=== PATIENT | male | born 1945 | race Caucasian/White ===

== ENCOUNTER 2018-02-07 18:09 | Inpatient (IN) | payer OTHER ==
[~2018-02-07] VITALS: Ht 167.6 cm; Wt 69.1 kg
[~2018-02-07 18:09] MED LIST: AMLO10 PO; ATEN100 PO; ATOR40TA PO; Aspirin325 MG PO; CARV6.25 PO; CLON.1 PO; CLOP75 PO; Glucophage1000 MG PO; Prilosec Otc20 MG PO; ZESTORETIC 20-121 EA PO
[2018-02-07 19:27] LABS: BASOPHILS ABSOLUTE AUTO 0.05 K/mm3 (0.00-0.23); BASOPHILS PERCENT AUTO 1 % (0-2); EOSINOPHILS ABSOLUTE AUTO 0.22 K/mm3 (0.00-0.68); EOSINOPHILS PERCENT AUTO 3 % (0-6); Hematocrit 37.7 % (37.0-53.0); Hemoglobin 12.7 g/dL (13.5-17.5); IMMATURE GRAN ABSOLUTE AUTO 0.03 K/mm3 (0.00-0.10); IMMATURE GRAN PERCENT AUTO 0 % (0-1); LYMPHOCYTES PERCENT AUTO 12 % (21-46); MONOCYTES ABSOLUTE AUTO 0.63 K/mm3 (0.16-1.47); MONOCYTES PERCENT AUTO 7 % (4-13); Mean Corpuscular HGB 31.1 pg (26.0-34.0); Mean Corpuscular HGB Conc 33.7 g/dL (31.5-36.5); Mean Corpuscular Volume 92 fL (80-100); Mean Platelet Volume 9.8 fL (9.1-12.4); NEUTROPHILS ABSOLUTE AUTO 6.88 K/mm3 (1.96-9.15); NEUTROPHILS PERCENT AUTO 77 % (41-73); Platelet Count 301 K/mm3 (150-400); RDW Coefficient Variation 13.1 % (11.7-14.2); RDW Standard Deviation 44.5 fL (35.1-46.3); Red Blood Cell Count 4.09 M/mm3 (4.30-5.90); White Blood Cell Count 8.91 K/mm3 (4.00-11.30)
[2018-02-07 19:43] LABS: Alanine Aminotransfer (ALT/SGP 27 U/L (12-78); Albumin, Blood 3.3 g/dL (3.4-5.0); Albumin/Globulin Ratio 0.9 (0.8-1.8); Alk Phos 48 U/L (50-136); Anion Gap 7 mmol/L (6-16); Aspartate Aminotrans (AST/SGOT 23 U/L (12-37); Bilirubin, Total 0.3 mg/dL (0.1-1.0); Blood Urea Nitrogen 16 mg/dL (8-24); Bun/Creatinine Ratio 10.6 (12.0-20.0); CO2, Blood 26 mmol/L (21-32); Calcium, Blood 8.5 mg/dL (8.5-10.1); Chloride, Blood 100 mmol/L (98-108); Creatinine, Blood 1.51 mg/dL (0.60-1.20); Globulin, Blood 3.6 g/dL (2.2-4.0); Glomerular Filtration Rate 49 (60-); Glucose, Blood 132 mg/dL (70-99); Potassium, Blood 4.7 mmol/L (3.5-5.5); Sodium, Blood 133 mmol/L (136-145); Total Protein, Blood 6.9 g/dL (6.4-8.2); Troponin I <0.015 ng/mL (0.000-0.040)
[2018-02-08 02:45] LABS: Hematocrit 33.8 % (37.0-53.0); Hemoglobin 11.5 g/dL (13.5-17.5); Mean Corpuscular HGB 31.3 pg (26.0-34.0); Mean Corpuscular Volume 92 fL (80-100); Mean Platelet Volume 9.5 fL (9.1-12.4); Platelet Count 250 K/mm3 (150-400); RDW Coefficient Variation 13.2 % (11.7-14.2); RDW Standard Deviation 44.4 fL (35.1-46.3); Red Blood Cell Count 3.68 M/mm3 (4.30-5.90); White Blood Cell Count 8.22 K/mm3 (4.00-11.30)
[2018-02-08 03:09] LABS: Alanine Aminotransfer (ALT/SGP 24 U/L (12-78); Albumin, Blood 2.9 g/dL (3.4-5.0); Albumin/Globulin Ratio 0.9 (0.8-1.8); Alk Phos 47 U/L (50-136); Anion Gap 10 mmol/L (6-16); Aspartate Aminotrans (AST/SGOT 17 U/L (12-37); Bilirubin, Total 0.3 mg/dL (0.1-1.0); Blood Urea Nitrogen 22 mg/dL (8-24); Bun/Creatinine Ratio 13.1 (12.0-20.0); CO2, Blood 25 mmol/L (21-32); Chloride, Blood 100 mmol/L (98-108); Creatinine, Blood 1.68 mg/dL (0.60-1.20); Globulin, Blood 3.4 g/dL (2.2-4.0); Glomerular Filtration Rate 43 (60-); Glucose, Blood 103 mg/dL (70-99); Potassium, Blood 4.5 mmol/L (3.5-5.5); Sodium, Blood 135 mmol/L (136-145); Total Protein, Blood 6.3 g/dL (6.4-8.2); Troponin I <0.015 ng/mL (0.000-0.040)
[2018-02-08 03:17] LABS: CPK Creatine Kinase 67 U/L (39-308)
[2018-02-08 04:40] LABS: Source, Urine Clean Catch
[2018-02-08 04:43] LABS: Bilirubin, Urine Neg (Neg); Blood, Urine Neg (Neg); Glucose Qualitative, Urine Neg (Neg); Ketones, Urine Neg (Neg); Leukocyte Esterase, Urine 1+ (Neg); Nitrite, Urine Neg (Neg); Protein, Urine 4+ (Neg); Specific Gravity, Urine 1.015 (1.003-1.022); Urobilinogen, Urine NORM (Normal)
[2018-02-08 04:51] LABS: Color, Urine Yellow (P-Yellow)
[2018-02-08 04:52] LABS: Appearance, Urine Clear (Clear)
[2018-02-08 04:53] LABS: Bacteria Not Seen /hpf; Granular Casts 0-2 /lpf (0); Hyaline Casts 25-50 /lpf (0-2); Red Blood Cells, Urine Not Seen /hpf (0-2); Squamous Epithelial Cells Rare /hpf (Few); White Blood Cells, Urine 0-2 /hpf (0-5)
[2018-02-08 05:02] LABS: U Amphetamine Screen Not Detected; U Barbituate Screen Not Detected; U Benzodiazapine Screen Not Detected; U Buprenorphine Screen Not Detected; U Cannabinoids Screen DETECTED; U Cocaine Screen Not Detected; U Methadone Screen Not Detected; U Methamphetamine Screen Not Detected; U Opiates Screen Not Detected; U Oxycodone Screen DETECTED; U Phencyclidine Screen Not Detected
[2018-02-08 05:03] LABS: U Propoxyphene Screen Not Detected
[2018-02-08 11:45] LABS: CPK Creatine Kinase 83 U/L (39-308); Troponin I <0.015 ng/mL (0.000-0.040)
[2018-02-09 05:14] LABS: BASOPHILS ABSOLUTE AUTO 0.05 K/mm3 (0.00-0.23); BASOPHILS PERCENT AUTO 1 % (0-2); EOSINOPHILS ABSOLUTE AUTO 0.24 K/mm3 (0.00-0.68); EOSINOPHILS PERCENT AUTO 4 % (0-6); Hematocrit 36.7 % (37.0-53.0); Hemoglobin 12.4 g/dL (13.5-17.5); IMMATURE GRAN ABSOLUTE AUTO 0.02 K/mm3 (0.00-0.10); IMMATURE GRAN PERCENT AUTO 0 % (0-1); LYMPHOCYTES ABSOLUTE AUTO 1.39 K/mm3 (0.84-5.20); LYMPHOCYTES PERCENT AUTO 20 % (21-46); MONOCYTES PERCENT AUTO 12 % (4-13); Mean Corpuscular HGB Conc 33.8 g/dL (31.5-36.5); Mean Platelet Volume 9.3 fL (9.1-12.4); NEUTROPHILS ABSOLUTE AUTO 4.33 K/mm3 (1.96-9.15); NEUTROPHILS PERCENT AUTO 63 % (41-73); Platelet Count 265 K/mm3 (150-400); RDW Standard Deviation 42.8 fL (35.1-46.3); Red Blood Cell Count 4.14 M/mm3 (4.30-5.90); White Blood Cell Count 6.83 K/mm3 (4.00-11.30)
[2018-02-09 05:19] LABS: Mean Corpuscular Volume 89 fL (80-100)
[2018-02-09 05:33] LABS: Albumin, Blood 3.2 g/dL (3.4-5.0); Albumin/Globulin Ratio 0.9 (0.8-1.8); Bilirubin, Total 0.5 mg/dL (0.1-1.0); Bun/Creatinine Ratio 16.8 (12.0-20.0); Calcium, Blood 8.4 mg/dL (8.5-10.1); Creatinine, Blood 1.37 mg/dL (0.60-1.20); Globulin, Blood 3.6 g/dL (2.2-4.0); Magnesium, Blood 2.2 mg/dL (1.6-2.4); Phosphorus, Blood 3.9 mg/dL (2.5-4.9); Potassium, Blood 3.9 mmol/L (3.5-5.5); Total Protein, Blood 6.8 g/dL (6.4-8.2)
[2018-02-10] MEDS ORDERED: TRAM50 PO (14:59)
== END 2018-02-10 15:40 | disposition home or self-care (01) | DRG 312 ==
LOC: ER 18:09 → MEDS 18:10 → ENPENDDIS 02-10 13:41 → MEDS 02-10 15:40
PROVIDERS: Emergency Medicine; Hospitalist; Internal Medicine
DX: R55 Syncope and collapse (principal); N17.9 Acute kidney failure, unspecified; I25.2 Old myocardial infarction; Z95.5 Presence of coronary angioplasty implant and graft; Z87.891 Personal history of nicotine dependence; R00.1 Bradycardia, unspecified; I25.10 Atherosclerotic heart disease of native coronary artery without angina pectoris; E86.0 Dehydration; N18.2 Chronic kidney disease, stage 2 (mild); R94.31 Abnormal electrocardiogram [ECG] [EKG]; F12.90 Cannabis use, unspecified, uncomplicated; F11.90 Opioid use, unspecified, uncomplicated; I35.0 Nonrheumatic aortic (valve) stenosis; I12.9 Hypertensive chronic kidney disease with stage 1 through stage 4 chronic kidney disease, or unspecified chronic kidney disease; E11.22 Type 2 diabetes mellitus with diabetic chronic kidney disease; Z79.84 Long term (current) use of oral hypoglycemic drugs
CPT/HCPCS: 36415; 71046; 76770; 78452; 80053; 81001; 82436; 82550; 82947; 83735; 83880; 84100; 84300; 84484; 85025; 85027; 93005; 93010; 93017; 93306; 96361; 96372; 96374; 96376; 99285-25; A9500; G0378; J0360; J0706; J1650; J2785; J7030

== ENCOUNTER → 2018-02-20 | Outpatient (CLI) | payer OTHER ==
[~2018-02-20] MED LIST changes: +TRAM50 PO
[2018-02-22 09:29] LABS: Stool Occult Bld Immuno 1 Negative (NEGATIVE)
== END | disposition home or self-care (01) ==
LOC: LAB EV 16:00
PROVIDERS: Internal Medicine
DX: D50.9 Iron deficiency anemia, unspecified (principal)
CPT/HCPCS: 82274

== ENCOUNTER 2019-04-24 21:07 | Inpatient (IN) | payer OTHER ==
[~2019-04-24] VITALS: Ht 167.6 cm; Wt 70.3 kg
[2019-04-24 21:31] LABS: BASOPHILS ABSOLUTE AUTO 0.08 K/mm3 (0.00-0.23); BASOPHILS PERCENT AUTO 1 % (0-2); EOSINOPHILS PERCENT AUTO 4 % (0-6); Hematocrit 46.3 % (37.0-53.0); IMMATURE GRAN ABSOLUTE AUTO 0.04 K/mm3 (0.00-0.10); IMMATURE GRAN PERCENT AUTO 1 % (0-1); LYMPHOCYTES ABSOLUTE AUTO 1.99 K/mm3 (0.84-5.20); LYMPHOCYTES PERCENT AUTO 23 % (21-46); MONOCYTES ABSOLUTE AUTO 0.73 K/mm3 (0.16-1.47); MONOCYTES PERCENT AUTO 8 % (4-13); Mean Corpuscular HGB 30.5 pg (26.0-34.0); Mean Corpuscular HGB Conc 32.4 g/dL (31.5-36.5); Mean Corpuscular Volume 94 fL (80-100); Mean Platelet Volume 10.2 fL (9.1-12.4); NEUTROPHILS ABSOLUTE AUTO 5.51 K/mm3 (1.96-9.15); NEUTROPHILS PERCENT AUTO 64 % (41-73); Platelet Count 378 K/mm3 (150-400); RDW Standard Deviation 48.8 fL (35.1-46.3); Red Blood Cell Count 4.91 M/mm3 (4.30-5.90); White Blood Cell Count 8.65 K/mm3 (4.00-11.30)
[2019-04-24 21:36] LABS: PCO2 Arterial 36.6 mmHg (35-45); PO2 Arterial 64.9 mmHg (80-100); pH Blood Arterial 7.39 (7.35-7.45)
[2019-04-24 21:46] LABS: Alanine Aminotransfer (ALT/SGP 23 U/L (12-78); Albumin, Blood 3.4 g/dL (3.4-5.0); Albumin/Globulin Ratio 0.8 (0.8-1.8); Alk Phos 62 U/L (50-136); Anion Gap 9 mmol/L (6-16); Aspartate Aminotrans (AST/SGOT 19 U/L (12-37); Bilirubin, Total 0.2 mg/dL (0.1-1.0); Blood Urea Nitrogen 18 mg/dL (8-24); Bun/Creatinine Ratio 11.3 (12.0-20.0); CO2, Blood 25 mmol/L (21-32); Calcium, Blood 8.3 mg/dL (8.5-10.1); Chloride, Blood 95 mmol/L (98-108); Creatinine, Blood 1.59 mg/dL (0.60-1.20); Globulin, Blood 4.3 g/dL (2.2-4.0); Glomerular Filtration Rate 46 (60-); Glucose, Blood 207 mg/dL (70-99); Potassium, Blood 4.3 mmol/L (3.5-5.5); Sodium, Blood 129 mmol/L (136-145); Total Protein, Blood 7.7 g/dL (6.4-8.2); Troponin I <0.015 ng/mL (0.000-0.040)
[2019-04-25 05:10] LABS: Hematocrit 38.5 % (37.0-53.0); Hemoglobin 13.1 g/dL (13.5-17.5); Mean Corpuscular HGB 30.9 pg (26.0-34.0); Mean Platelet Volume 10.2 fL (9.1-12.4); Platelet Count 304 K/mm3 (150-400); RDW Coefficient Variation 13.7 % (11.7-14.2); RDW Standard Deviation 45.9 fL (35.1-46.3); Red Blood Cell Count 4.24 M/mm3 (4.30-5.90); White Blood Cell Count 8.55 K/mm3 (4.00-11.30)
[2019-04-25 05:12] LABS: Mean Corpuscular Volume 91 fL (80-100)
[2019-04-25 05:31] LABS: Calcium, Blood 8.7 mg/dL (8.5-10.1); Creatinine, Blood 1.54 mg/dL (0.60-1.20); Potassium, Blood 4.2 mmol/L (3.5-5.5)
--- NOTE | 2019-04-25 06:17 | NUR ---
END OF SHIFT SUMMARY PT TO UNIT FROM ED, ON 4LNC, SPO2 >94%, PT HAS SINCE BEEN TITRATED TO RA, SPO2 >95%. HAS NOT REQUIRED BIPAP. PT AXO, VERY PLEASANT. SR TO ST FOR HR, PT WAS NORMOTENSIVE, AND THEN HAD RANDOM HTN OF 200'S SBP, MEDS PER EMAR, HAS DECREASED TO 150'S. TROPONIN APPEARS TO HAVE INCREASED FROM NEGATIVE TO 0.059, HAVE CALLED MULTIPLE TIMES TO PROVIDER, HAS NOT RETURNED CALL YET. PT HAS SMALL TEAR/ULCER IN [place] ON ADMIT, TOOL AND EQUIPMENT RENTAL CLERK. OTHERWISE PT HAS SLEPT T/O SHIFT POST ADMIT. CALL LIGHT WITHIN REACH. WILL CONTINUIE TO MONITOPR.
--- NOTE | 2019-04-25 09:54 | NUR ---
ECHOCARDIOGRAM COMPLETED
--- NOTE | 2019-04-25 10:03 | NUR ---
This morning the pt is alert, oriented and pleasantly conversant. States that his breathing is better than it was last night, but still not back to normal. NO cough, no tachypnea, no shortness of breath noted at rest. Pt did not require the bipap since admission to PCU; received 40 mg lasix from EMS, but none since admission. He has been on room air without any supplemental oxgyen since midnight, per noc shift RN report this morning. Noted Echocardiogram ordered for this morning. Spoke with Dr. Felix this morning and he has received the consultation request. New order that pt could eat breakfast today. Blood pressure noted elevated this morning, plan to reassess one hour after administration of medications.
--- NOTE | 2019-04-25 13:28 | NUR ---
Spiritual care visit conducted. Patient is sitting up in bed and alert. Patient is talkative and easily shares about his 30 plus years at [employer], his medical condition and his 50 plus years of marriage. When asked what his inspiration, drive and hope is, patient states, "My and 4 kids are all that and more." Patient gets teary eyed as he talks about the love and meaning his family brings him. I listen empathically, normalize patient experience and provide companionship. Patient responds well and shows signs of an elevated mood.
--- NOTE | 2019-04-25 16:13 | NUR ---
The pt states that his breathing is feeling so much better than he was last night. His son was here. The pt is being given IV antibiotics for his pneumonia. NO c/o shortness of breath, denies dyspnea, no supplemental oxygen requirement at this time. Vital signs are stable and spo2 is 97% on room air.
[2019-04-26 03:41] LABS: BASOPHILS ABSOLUTE AUTO 0.02 K/mm3 (0.00-0.23); BASOPHILS PERCENT AUTO 0 % (0-2); EOSINOPHILS ABSOLUTE AUTO 0.08 K/mm3 (0.00-0.68); EOSINOPHILS PERCENT AUTO 1 % (0-6); Hematocrit 32.5 % (37.0-53.0); Hemoglobin 11.4 g/dL (13.5-17.5); IMMATURE GRAN ABSOLUTE AUTO 0.04 K/mm3 (0.00-0.10); IMMATURE GRAN PERCENT AUTO 0 % (0-1); LYMPHOCYTES ABSOLUTE AUTO 1.66 K/mm3 (0.84-5.20); LYMPHOCYTES PERCENT AUTO 15 % (21-46); MONOCYTES ABSOLUTE AUTO 1.01 K/mm3 (0.16-1.47); MONOCYTES PERCENT AUTO 9 % (4-13); Mean Corpuscular HGB 31.7 pg (26.0-34.0); Mean Corpuscular HGB Conc 35.1 g/dL (31.5-36.5); Mean Corpuscular Volume 90 fL (80-100); NEUTROPHILS ABSOLUTE AUTO 8.62 K/mm3 (1.96-9.15); NEUTROPHILS PERCENT AUTO 76 % (41-73); Platelet Count 285 K/mm3 (150-400); RDW Coefficient Variation 13.8 % (11.7-14.2); RDW Standard Deviation 45.9 fL (35.1-46.3); White Blood Cell Count 11.43 K/mm3 (4.00-11.30)
[2019-04-26 04:06] LABS: Anion Gap 8 mmol/L (6-16); Blood Urea Nitrogen 27 mg/dL (8-24); Bun/Creatinine Ratio 18.1 (12.0-20.0); CO2, Blood 26 mmol/L (21-32); Calcium, Blood 8.3 mg/dL (8.5-10.1); Chloride, Blood 95 mmol/L (98-108); Creatinine, Blood 1.49 mg/dL (0.60-1.20); Glomerular Filtration Rate 49 (60-); Glucose, Blood 105 mg/dL (70-99); Phosphorus, Blood 3.1 mg/dL (2.5-4.9); Potassium, Blood 3.9 mmol/L (3.5-5.5); Sodium, Blood 129 mmol/L (136-145); Troponin I 0.036 ng/mL (0.000-0.040)
--- NOTE | 2019-04-26 06:26 | NUR ---
SHIFT SUMMARY PT HAS REMAINED AOX4 THROUGHOUT SHIFT. VSS. PLEASANT AND COOPERATIVE WITH CARE. PT CONTINUES TO AMBULATE INDEPENDENTLY TO RESTROOM WITHOUT DIFFICULTY. O2 SATS REMAINED >90% ON RA THROUGHOUT THE NIGHT, SLIGHT DYSPNEA ON EXERTION - MUCH IMPROVED. CONTINUES TO HAVE OCCASIONAL DRY COUGH. NO OTHER CHANGES NOTED FROM INITIAL ASSESSMENT. WILL CONTINUE TO MONITOR AND REPORT TO ONCOMING SHIFT RN. BED IN LOW POSITION, CALL LIGHT IN REACH.
--- NOTE | 2019-04-26 07:37 | NUR ---
ASSUMED CARE: PT RESTING IN BED AT THIS TIME. NO ACUTE NEEDS OR CONCERNS AT THIS TIME.
[2019-04-26] MEDS ORDERED: FURO20 PO (13:07)
[2019-04-26] MEDS ORDERED: LISI20 PO (13:08)
[2019-04-26] MEDS ORDERED: POTCHL20ER PO (13:09)
--- NOTE | 2019-04-26 15:03 | NUR ---
PT'S IV REMOVED WNL PER CHELA COOPER. DISCUSSED MEDICATIONS AND FOLLOW UP APPOINTMENTS WITH PT AND FAMILY. DENIED FURTHER QUESTIONS. PT ESCORTED OUT VIA WHEEL CHAIR BY SENIOR MEDICAL TECHNOLOGIST STUDENT.
== END 2019-04-26 14:58 | disposition home or self-care (01) | DRG 280 ==
LOC: ER 21:07 → PCU 23:23
PROVIDERS: Emergency Medicine; Family Medicine; Nurse Practitioner Acute Care; ADMIT Hospitalist
PROC: 5A09357 Assistance with Respiratory Ventilation, Less than 24 Consecutive Hours, Continuous Positive Airway Pressure (ICD-10-PCS; principal; 2019-04-24)
DX: I13.0 Hypertensive heart and chronic kidney disease with heart failure and stage 1 through stage 4 chronic kidney disease, or unspecified chronic kidney disease (principal); J96.01 Acute respiratory failure with hypoxia; I21.A1 Myocardial infarction type 2; J18.9 Pneumonia, unspecified organism; I50.33 Acute on chronic diastolic (congestive) heart failure; I16.1 Hypertensive emergency; E87.1 Hypo-osmolality and hyponatremia; I25.10 Atherosclerotic heart disease of native coronary artery without angina pectoris; E11.22 Type 2 diabetes mellitus with diabetic chronic kidney disease; I25.2 Old myocardial infarction; Z87.891 Personal history of nicotine dependence; N18.3 Chronic kidney disease, stage 3 (moderate); K21.9 Gastro-esophageal reflux disease without esophagitis; I35.0 Nonrheumatic aortic (valve) stenosis; Z95.5 Presence of coronary angioplasty implant and graft; Z79.82 Long term (current) use of aspirin; Z79.84 Long term (current) use of oral hypoglycemic drugs
CPT/HCPCS: 36415; 36600; 71045; 71260; 80048; 80053; 80069; 82803; 82947; 83880; 84484; 85025; 85027; 85379; 90686; 93005; 93010; 93306; 94644; 94660; 94760; 94762; 96374; 99285-25; J0360; J0696; J1100; J1644; J7050; Q9967

== ENCOUNTER 2020-09-08 23:07 | Inpatient (IN) | payer OTHER, MEDICARE ==
[~2020-09-08] VITALS: Ht 152.4 cm; Wt 67.8 kg
[~2020-09-08 23:07] MED LIST changes: +FURO20 PO; +LISI20 PO; +POTCHL20ER PO
[2020-09-08 23:29] LABS: BASOPHILS ABSOLUTE AUTO 0.05 K/mm3 (0.00-0.23); BASOPHILS PERCENT AUTO 1 % (0-2); EOSINOPHILS ABSOLUTE AUTO 0.31 K/mm3 (0.00-0.68); EOSINOPHILS PERCENT AUTO 3 % (0-6); Hematocrit 37.6 % (37.0-53.0); Hemoglobin 12.8 g/dL (13.5-17.5); IMMATURE GRAN ABSOLUTE AUTO 0.05 K/mm3 (0.00-0.10); IMMATURE GRAN PERCENT AUTO 1 % (0-1); LYMPHOCYTES ABSOLUTE AUTO 1.37 K/mm3 (0.84-5.20); LYMPHOCYTES PERCENT AUTO 15 % (21-46); MONOCYTES ABSOLUTE AUTO 0.64 K/mm3 (0.16-1.47); MONOCYTES PERCENT AUTO 7 % (4-13); Mean Corpuscular HGB 31.7 pg (26.0-34.0); Mean Corpuscular Volume 93 fL (80-100); Mean Platelet Volume 9.7 fL (9.1-12.4); NEUTROPHILS ABSOLUTE AUTO 6.93 K/mm3 (1.96-9.15); NEUTROPHILS PERCENT AUTO 74 % (41-73); Platelet Count 344 K/mm3 (150-400); RDW Coefficient Variation 13.8 % (11.7-14.2); RDW Standard Deviation 46.8 fL (35.1-46.3); Red Blood Cell Count 4.04 M/mm3 (4.30-5.90); White Blood Cell Count 9.35 K/mm3 (4.00-11.30)
[2020-09-08 23:55] LABS: Albumin, Blood 2.9 g/dL (3.4-5.0); Albumin/Globulin Ratio 0.8 (0.8-1.8); Bilirubin, Total 0.2 mg/dL (0.1-1.0); Bun/Creatinine Ratio 14.5 (12.0-20.0); Calcium, Blood 7.7 mg/dL (8.5-10.1); Creatinine, Blood 1.93 mg/dL (0.60-1.20); Globulin, Blood 3.8 g/dL (2.2-4.0); Potassium, Blood 4.3 mmol/L (3.5-5.5); Total Protein, Blood 6.7 g/dL (6.4-8.2); Troponin I 0.016 ng/mL (0.000-0.040)
[2020-09-09 02:29] LABS: Base Excess Venous -3.5 mmol/L; Bicarbonate Venous 21.5 mmol/L (24.0-30.0); PCO2 Venous 40.4 mmHg (38-42); pH Blood Venous 7.35 (7.34-7.37)
--- NOTE | 2020-09-09 05:54 | NUR ---
SHIFT SUMMARY ASSUMED CARE OF PT AT 0325. PT AXO. IN SR. PT TITRATED FROM 3LNC TO RA, SPO2 >94%. LUNGS CLEAR T/O. CONTINENT. HTN, MEDS PER EMAR, APRESOLINE SUCCESFUL AT LOWERING BP TO NORMOTENSIVE RANGE. PT RECEIVING IL NS CURRENTLY X1 BAG. ADMISSION COMPLETED, EXCEPT MED REC. PT UNAWARE OF MED REGIMEN, WCTM.
--- NOTE | 2020-09-09 08:06 | NUR ---
PT SITTING UP IN BED EATING BREAKFAST. ABLE TO MOVE SELF IN BED AND GET SELF TO SIDE OF BED TO USE URINAL. C/O HERRERA, GAVE TYLENOL. HYPERTENSIVE, WILL GIVE HYDRALAZINE WHEN DUE. ON RA WITH SPO2 GREATER THAN 90%, CONTINUOUS OXIMETERY. CALL LIGHT IN REACH AND PT USES APPROPRIATELY. NO REQUESTS.
[2020-09-09] MEDS ORDERED: METO50ER PO (11:32)
[2020-09-09] MEDS ORDERED: HYDROCHLOROTH12.5 MG PO (11:35)
[2020-09-09] MEDS ORDERED: TAMS.4ER PO (11:37)
[2020-09-09] MEDS ORDERED: TERB250 PO (11:37)
--- NOTE | 2020-09-09 12:31 | NUR ---
PT STILL C/O HERRERA. CALLED LATESHA FINK FROM [facility] WITH UPDATED MED LIST. NEW ORDERS FOR BP MEDS. PT NAUSEATED. GAVE ZOFRAN. WILL GIVE ORDERED BP MEDS WHEN PT IS LESS NAUSEATED.
--- NOTE | 2020-09-09 14:26 | NUR ---
ADMIT: 09/08/20 DISCHARGE: DX: Acute Resp. Failure CC: [email or web address]: 04/24/19 DISCHARGE:04/26/19 DX: ACUTE HYPOXEMIC RESPIRATORY FAILURE ADMIT: 02/07/18 DISCHARGE: 02/10/18TOC CALL:RESIDENCE: HomeCAREGIVER:Britany Davis, Child, Alba Francisco Javier, Spouse / Partner, AH: HTN, CKD-stage 3, CAD, GERD, see listDME: noneCCM: [facility] NoneSUMMARY: Admit: /- per chart review with Dr. Quinonez, pt's health has improved and she will be changing his status to med/surg. She feels that he could potentially discharge either or Monday. He needs to be diurese and pt reports that he is feeling significantly better and is not so short of breath. -ena
--- NOTE | 2020-09-09 16:45 | NUR ---
PT'S HERRERA IMPROVED AFTER BP IMPROVED WELL NAUSEA. NO SIGN OF DISTRESS. BEING TRANSFERED TO SURGICAL ROOM 209. REPORT GIVEN TO RN. TAKEN VIA W/C.
--- NOTE | 2020-09-09 17:10 | NUR ---
RECVD REPORT FROM POLICE MAGISTRATE, PT TRANSFERRED TO ROOM 209 IN WHEELCHAIR, A/O X 4, PLEASANT/COOPERATIVE, TRANSFERS HIMSELF TO BED, VSS, PROVIDED WITH ORIENTATION TO ROOM/PHONE/CALL LIGHT, PROVIDED WITH PO FLUIDS.
--- NOTE | 2020-09-10 03:21 | NUR ---
Pt gives permission to particpate in care
--- NOTE | 2020-09-10 04:35 | NUR ---
SHIFT SUMMARY PT TRANSFER FROM ICU YESTARDAY. AAOX4/MEKORYUK. PT DENIES DISCOMFORT/NAUSEA T/O SHIFT. LUNG SOUNDS CLEAR, SLIGHTLY DIMINISHED IN BASES. DENIES SOB T/O SHIFT. ON RA, RESPIRATIONS EVEN/UNLABORED. UP TO RESTROOM SBA. GOOD FLUID INTAKE + URINE OUTPUT. NO ACUTE CHANGES OVER NIGHT. PT CURRENTLY RESTING IN BED WITH CALL LIGHT IN REACH.
[2020-09-10 04:36] LABS: BASOPHILS ABSOLUTE AUTO 0.03 K/mm3 (0.00-0.23); BASOPHILS PERCENT AUTO 0 % (0-2); EOSINOPHILS ABSOLUTE AUTO 0.17 K/mm3 (0.00-0.68); EOSINOPHILS PERCENT AUTO 2 % (0-6); Hematocrit 37.4 % (37.0-53.0); Hemoglobin 12.5 g/dL (13.5-17.5); IMMATURE GRAN ABSOLUTE AUTO 0.01 K/mm3 (0.00-0.10); IMMATURE GRAN PERCENT AUTO 0 % (0-1); LYMPHOCYTES ABSOLUTE AUTO 0.95 K/mm3 (0.84-5.20); LYMPHOCYTES PERCENT AUTO 13 % (21-46); MONOCYTES ABSOLUTE AUTO 0.63 K/mm3 (0.16-1.47); MONOCYTES PERCENT AUTO 9 % (4-13); Mean Corpuscular HGB 30.9 pg (26.0-34.0); Mean Corpuscular HGB Conc 33.4 g/dL (31.5-36.5); Mean Corpuscular Volume 92 fL (80-100); Mean Platelet Volume 9.7 fL (9.1-12.4); NEUTROPHILS ABSOLUTE AUTO 5.49 K/mm3 (1.96-9.15); NEUTROPHILS PERCENT AUTO 76 % (41-73); Platelet Count 333 K/mm3 (150-400); RDW Coefficient Variation 13.9 % (11.7-14.2); RDW Standard Deviation 47.9 fL (35.1-46.3); Red Blood Cell Count 4.05 M/mm3 (4.30-5.90); White Blood Cell Count 7.28 K/mm3 (4.00-11.30)
[2020-09-10 04:55] LABS: Bun/Creatinine Ratio 14.8 (12.0-20.0); Calcium, Blood 8.6 mg/dL (8.5-10.1); Creatinine, Blood 1.89 mg/dL (0.60-1.20); Potassium, Blood 4.3 mmol/L (3.5-5.5)
--- NOTE | 2020-09-10 13:56 | NUR ---
09/10/20- per chart review with Dr. Quinonez, pt is doing well and will be able to d/c tomorrow. She stated that pt has pneumonia but he is doing better. She will order PT/OT services to work with him to see if he needs anything for post hosp. Went and met with pt and he stated that he is doing much better. He is grateful for the care he has received. He talked about how his had a stroke recently and is in [facility] and then he got sick and admitted into the hospital. He stated that one of his 4 kids will be able to take him home from the hospital. They all live close to him and will come over and help him with any needs he may have. He could not identify any needs at this time. Reviewed [facility] letter with pt and he acknowledged understanding of needing to schedule f/u appt. -ena
--- NOTE | 2020-09-10 18:39 | NUR ---
SHIFT SUMMARY NO ACUTE CHANGES THIS SHIFT. PT A/O X4; PLEASANT AND COOPERATIVE WITH CARE. WORKED WITH P/T AND O/T TODAY. UP WITH A 1 PERSON ASSIST. ON ROOM AIR. VSS; WILL POSSIBLY DC TOMORROW. CURRENTLY RESTING COMFORTABLY IN BED WITH CALL LIGHT IN REACH.
--- NOTE | 2020-09-11 00:35 | NUR ---
PT IS AGREEABLE TO STUDENTS PARTICPATION IN CARE
--- NOTE | 2020-09-11 03:58 | NUR ---
SHIFT SUMMARY: PT CALM DOOPERATIVE WITH BRIGHT AFFECT, A&OX4, PT AMBULATES W/O ASSIST UP ADLIB W/BRP, VS WNL, RESPIRATIONS EVEN UNLABORED ON R/A NO SHORTNESS OF BREATH NOTED T/O NIGHT, APPEARS TO BE RESTING WELL NADN.
[2020-09-11 04:37] LABS: BASOPHILS ABSOLUTE AUTO 0.04 K/mm3 (0.00-0.23); BASOPHILS PERCENT AUTO 1 % (0-2); EOSINOPHILS ABSOLUTE AUTO 0.24 K/mm3 (0.00-0.68); EOSINOPHILS PERCENT AUTO 5 % (0-6); Hematocrit 32.6 % (37.0-53.0); Hemoglobin 11.2 g/dL (13.5-17.5); IMMATURE GRAN ABSOLUTE AUTO 0.01 K/mm3 (0.00-0.10); IMMATURE GRAN PERCENT AUTO 0 % (0-1); LYMPHOCYTES ABSOLUTE AUTO 1.02 K/mm3 (0.84-5.20); LYMPHOCYTES PERCENT AUTO 19 % (21-46); MONOCYTES ABSOLUTE AUTO 0.67 K/mm3 (0.16-1.47); MONOCYTES PERCENT AUTO 13 % (4-13); Mean Corpuscular HGB 31.4 pg (26.0-34.0); Mean Corpuscular HGB Conc 34.4 g/dL (31.5-36.5); Mean Corpuscular Volume 91 fL (80-100); Mean Platelet Volume 9.7 fL (9.1-12.4); NEUTROPHILS ABSOLUTE AUTO 3.28 K/mm3 (1.96-9.15); NEUTROPHILS PERCENT AUTO 62 % (41-73); Platelet Count 280 K/mm3 (150-400); RDW Coefficient Variation 13.7 % (11.7-14.2); RDW Standard Deviation 46.3 fL (35.1-46.3); Red Blood Cell Count 3.57 M/mm3 (4.30-5.90); White Blood Cell Count 5.26 K/mm3 (4.00-11.30)
[2020-09-11 04:52] LABS: Bun/Creatinine Ratio 13.8 (12.0-20.0); Calcium, Blood 8.2 mg/dL (8.5-10.1); Creatinine, Blood 1.95 mg/dL (0.60-1.20); Potassium, Blood 4.1 mmol/L (3.5-5.5)
[2020-09-11] MEDS ORDERED: AZIT200SU PO (13:30)
[2020-09-11] MEDS ORDERED: CEFU500T30 PO (13:31)
--- NOTE | 2020-09-11 13:55 | NUR ---
09/11/20- per chart review, Dr. Barrett has seen pt and found he is stable for d/c. He has good home support. Pt does not identify needs at home and his children are able to help him. He will call one of them to come pick him up. Reviewed [facility] and that would receive call for appt next week. -ena
--- NOTE | 2020-09-11 14:25 | NUR ---
DISCHARGE SUMMARY PT A/O X4; PLEASANT AND COOPERATIVE WITH CARE. REPORTS FEELING MUCH BETTER TODAY AND IS READY TO GO HOME. WORKED WITH P/T AND O/T TODAY AND DID WELL. WENT OUT IN THE [place] FOR MEALS AND IS AMBULATING IN HIS ROOM W/O DIFFICULTY OR ANY DYSPNEA. VSS; IV DC'D WNL. EDUCATED ON MEDICATION CHANGES AND DISCHARGE INSTRUCTIONS. EXHIBITS UNDERSTANDING. WENT HOME WITH SON.
--- NOTE | 2020-09-15 15:34 | NUR ---
DISCHARGE MEDS PHONE CALL FROM DAUGHTER, PATIENT DID NOT TAILINGS DAM PUMPER MEDS FROM [facility]. RX PHONED AGAIN AT THIS TIME. ADVISED THAT MEDS NEED TO BE GIVEN PRESCRIBED AND HE NEEDS TO FOLLOW UP WITH PCP AND RETURN TO ED IF NOT DOING WELL.
== END 2020-09-11 16:20 | disposition home or self-care (01) | DRG 193 ==
LOC: ER 23:07 → ICUE 09-09 00:52 → ICUW 09-09 00:52 → ICUE 09-09 02:44 → SURS 09-09 16:48
PROVIDERS: Emergency Medicine; Family Medicine; ADMIT Family Medicine
DX: J18.9 Pneumonia, unspecified organism (principal); J96.21 Acute and chronic respiratory failure with hypoxia; I16.1 Hypertensive emergency; E87.1 Hypo-osmolality and hyponatremia; N17.9 Acute kidney failure, unspecified; I13.0 Hypertensive heart and chronic kidney disease with heart failure and stage 1 through stage 4 chronic kidney disease, or unspecified chronic kidney disease; I25.10 Atherosclerotic heart disease of native coronary artery without angina pectoris; N18.30 Chronic kidney disease, stage 3 unspecified; I50.9 Heart failure, unspecified; E11.22 Type 2 diabetes mellitus with diabetic chronic kidney disease; K21.9 Gastro-esophageal reflux disease without esophagitis; F17.210 Nicotine dependence, cigarettes, uncomplicated; Z95.5 Presence of coronary angioplasty implant and graft; Z79.84 Long term (current) use of oral hypoglycemic drugs; Z79.02 Long term (current) use of antithrombotics/antiplatelets; Z79.82 Long term (current) use of aspirin
CPT/HCPCS: 36415; 71045; 80048; 80053; 82803; 82947; 83605; 84484; 85025; 87040; 93005; 93010; 94640; 94644; 94760; 96365; 97162; 97165; 97530; 99285-25; A9270; J0360; J0456; J0696; J1644; J2405; J7050

== ENCOUNTER → 2021-02-10 | Outpatient (CLI) | payer OTHER ==
[~2021-02-10] MED LIST changes: +AZIT200SU PO; +CEFU500T30 PO; +HYDROCHLOROTH12.5 MG PO; +METO50ER PO; +TAMS.4ER PO; +TERB250 PO
[2021-02-10 15:17] LABS: Albumin, Blood 3.2 g/dL (3.4-5.0); Anion Gap 11 mmol/L (6-16); Blood Urea Nitrogen 26 mg/dL (8-24); Bun/Creatinine Ratio 11.9 (12.0-20.0); CO2, Blood 22 mmol/L (21-32); Calcium, Blood 7.9 mg/dL (8.5-10.1); Chloride, Blood 101 mmol/L (98-108); Creatinine, Blood 2.19 mg/dL (0.60-1.20); Glomerular Filtration Rate 30 (60-); Glucose, Blood 113 mg/dL (70-99); Phosphorus, Blood 4.6 mg/dL (2.5-4.9); Potassium, Blood 5.2 mmol/L (3.5-5.5); Sodium, Blood 134 mmol/L (136-145)
== END | disposition home or self-care (01) ==
LOC: LAB 14:58 → LAB SHORT 14:58
PROVIDERS: Physician Assistant
DX: E11.22 Type 2 diabetes mellitus with diabetic chronic kidney disease (principal); N18.30 Chronic kidney disease, stage 3 unspecified
CPT/HCPCS: 80069; 83036

== ENCOUNTER → 2021-02-18 | Outpatient (CLI) | payer OTHER ==
[2021-02-22 13:46] LABS: Adenovirus F 40/41 Not Detected (NOT DETECT); Astrovirus Not Detected (NOT DETECT); Campylobacter Sp Not Detected (NOT DETECT); Cryptosporidium Not Detected (NOT DETECT); Cyclospora Cayetanensis Not Detected (NOT DETECT); E. Coli O157 Not Detected (NOT DETECT); Entamoeba Histolytica Not Detected (NOT DETECT); Enteroaggregative E. coli-EAEC Not Detected (NOT DETECT); Enteropathogenic E. coli-EPEC Not Detected (NOT DETECT); Enterotoxigenic E. coli-ETEC Not Detected (NOT DETECT); Giardia Lamblia Not Detected (NOT DETECT); Norovirus GI/GII Not Detected (NOT DETECT); Plesiomonas Shigelloides Not Detected (NOT DETECT); Rotavirus A Not Detected (NOT DETECT); Salmonella Sp Not Detected (NOT DETECT); Sapovirus Not Detected (NOT DETECT); Shiga Toxin-prod E. coli-STEC Not Detected (NOT DETECT); Shigella/Enteroin E. coli-EIEC Not Detected (NOT DETECT); Vibrio Cholerae Not Detected (NOT DETECT); Vibrio Sp Not Detected (NOT DETECT); Yersinia Enterocolitica Not Detected (NOT DETECT)
== END | disposition home or self-care (01) ==
LOC: LAB SHORT 09:00 → LAB 09:00
PROVIDERS: Physician Assistant
DX: R19.7 Diarrhea, unspecified (principal)
CPT/HCPCS: 0097U

== ENCOUNTER 2021-04-23 11:22 | Inpatient (IN) | payer OTHER ==
[~2021-04-23] VITALS: Ht 165.1 cm; Wt 65.6 kg
[2021-04-23 12:31] LABS: BASOPHILS ABSOLUTE AUTO 0.05 K/mm3 (0.00-0.23); BASOPHILS PERCENT AUTO 1 % (0-2); EOSINOPHILS ABSOLUTE AUTO 0.24 K/mm3 (0.00-0.68); EOSINOPHILS PERCENT AUTO 3 % (0-6); Hematocrit 38.5 % (37.0-53.0); IMMATURE GRAN ABSOLUTE AUTO 0.02 K/mm3 (0.00-0.10); IMMATURE GRAN PERCENT AUTO 0 % (0-1); LYMPHOCYTES ABSOLUTE AUTO 0.59 K/mm3 (0.84-5.20); LYMPHOCYTES PERCENT AUTO 6 % (21-46); MONOCYTES ABSOLUTE AUTO 0.48 K/mm3 (0.16-1.47); MONOCYTES PERCENT AUTO 5 % (4-13); Mean Corpuscular HGB 31.6 pg (26.0-34.0); Mean Corpuscular HGB Conc 33.8 g/dL (31.5-36.5); Mean Corpuscular Volume 93 fL (80-100); NEUTROPHILS ABSOLUTE AUTO 7.86 K/mm3 (1.96-9.15); NEUTROPHILS PERCENT AUTO 85 % (41-73); Platelet Count 345 K/mm3 (150-400); RDW Coefficient Variation 13.4 % (11.7-14.2); RDW Standard Deviation 46.3 fL (35.1-46.3); Red Blood Cell Count 4.12 M/mm3 (4.30-5.90); White Blood Cell Count 9.24 K/mm3 (4.00-11.30)
[2021-04-23] MEDS ORDERED: METO50ER PO (12:37)
[2021-04-23 12:44] LABS: Alanine Aminotransfer (ALT/SGP 18 U/L (12-78); Albumin/Globulin Ratio 0.7 (0.8-1.8); Alk Phos 52 U/L (50-136); Anion Gap 9 mmol/L (6-16); Aspartate Aminotrans (AST/SGOT 19 U/L (12-37); Bilirubin, Total 0.4 mg/dL (0.1-1.0); Blood Urea Nitrogen 26 mg/dL (8-24); Bun/Creatinine Ratio 11.3 (12.0-20.0); CO2, Blood 20 mmol/L (21-32); Calcium, Blood 8.4 mg/dL (8.5-10.1); Chloride, Blood 103 mmol/L (98-108); Globulin, Blood 4.1 g/dL (2.2-4.0); Glomerular Filtration Rate 28 (60-); Glucose, Blood 146 mg/dL (70-99); Potassium, Blood 4.9 mmol/L (3.5-5.5); Sodium, Blood 132 mmol/L (136-145); Total Protein, Blood 7.1 g/dL (6.4-8.2); Troponin I <0.015 ng/mL (0.000-0.040)
[2021-04-23 14:45] LABS: SARS-Cov-2 (COVID-19) PCR, MMC POSITIVE (NEGATIVE)
[2021-04-23 16:40] LABS: Lactate Dehydrogenase (Ld),Bld 234 U/L (100-240)
[2021-04-23 16:41] LABS: Ferritin, Serum 40 ng/mL (26-388)
--- NOTE | 2021-04-23 18:19 | NUR ---
SUMMARY PT ADMITTED FROM THE ER, PT ALERT AND ORIENTED, ABLE TO STAND AND TRANSFER SELF FROM THE GURNEY TO THE BED, PT ON ROOM AIR, FAINT WHEEZES HEARD, PT REPORTS BREATHING IS BETTER THAN WHEN HE CAME IN, ORIENTED PT TO ROOM AND CALL SYSTEM, BP ELEVATED, MED PER EMAR WITH GOOD RESULTS, WILL CONT TO MONITOR
--- NOTE | 2021-04-23 20:34 | NUR ---
BP 210/113. MD NOTIFIED. WILL PUT IN ORDERS FOR ADDL. BP MED.
[2021-04-24 04:59] LABS: BASOPHILS ABSOLUTE AUTO 0.01 K/mm3 (0.00-0.23); BASOPHILS PERCENT AUTO 0 % (0-2); EOSINOPHILS PERCENT AUTO 0 % (0-6); Hematocrit 34.6 % (37.0-53.0); Hemoglobin 11.8 g/dL (13.5-17.5); IMMATURE GRAN ABSOLUTE AUTO 0.03 K/mm3 (0.00-0.10); IMMATURE GRAN PERCENT AUTO 0 % (0-1); LYMPHOCYTES ABSOLUTE AUTO 0.38 K/mm3 (0.84-5.20); LYMPHOCYTES PERCENT AUTO 5 % (21-46); MONOCYTES ABSOLUTE AUTO 0.11 K/mm3 (0.16-1.47); MONOCYTES PERCENT AUTO 2 % (4-13); Mean Corpuscular HGB 31.6 pg (26.0-34.0); Mean Corpuscular HGB Conc 34.1 g/dL (31.5-36.5); Mean Corpuscular Volume 93 fL (80-100); Mean Platelet Volume 10.3 fL (9.1-12.4); NEUTROPHILS ABSOLUTE AUTO 6.82 K/mm3 (1.96-9.15); NEUTROPHILS PERCENT AUTO 93 % (41-73); Platelet Count 323 K/mm3 (150-400); RDW Coefficient Variation 13.4 % (11.7-14.2); Red Blood Cell Count 3.73 M/mm3 (4.30-5.90); White Blood Cell Count 7.35 K/mm3 (4.00-11.30)
[2021-04-24 06:22] LABS: Albumin, Blood 2.8 g/dL (3.4-5.0); Albumin/Globulin Ratio 0.8 (0.8-1.8); Bilirubin, Total 0.3 mg/dL (0.1-1.0); Bun/Creatinine Ratio 11.5 (12.0-20.0); Calcium, Blood 8.8 mg/dL (8.5-10.1); Creatinine, Blood 2.69 mg/dL (0.60-1.20); Globulin, Blood 3.5 g/dL (2.2-4.0); Potassium, Blood 4.9 mmol/L (3.5-5.5); Total Protein, Blood 6.3 g/dL (6.4-8.2)
--- NOTE | 2021-04-24 15:55 | NUR ---
pt laying in bed watching tv, keeps his ear plugs in to the tv. a/ox3, pleasant and cooperative with care, follows commands well, denies pain or sob, states he's feeling good, lungs are clear a bit dim in bases, resp even and unlabored, no cough noted, hrr, murmur noted, no edema noted, ppp+1, cap refill <3sec, vs stable, afebrile, piv to rfa, site is clear and patent, btx4, abd flat soft nontender, voids via urinal clear yellow urine, skin c/w/d, maew, rashid, call light in reach.
--- NOTE | 2021-04-24 19:00 | NUR ---
pt watching tv most of the day, no complaints, states he feel worse in the evenings, but still improving. call light in reach.
--- NOTE | 2021-04-25 04:33 | NUR ---
PT IS AAO. DENIES PAIN. RESP UNLABORED. SATS ABOVE 90 ON ROOM AIR. LUNGS WITH DIMINISHED BREATH SOUNDS. NO COUGH OR SOB. VSS. MEDS GIVEN. CALL LIGHT WITHIN REACH. SAFETY MEASURES IN PLACE.
--- NOTE | 2021-04-25 08:00 | NUR ---
pt laying in bed watching tv, a/ox3, pleasant and cooperative with care, follows commands well, denies pain, states he is feeling better, no complaints, lungs are clear dim in bases, no cough noted, hrr, murmur noted, no edema noted, ppp+2, cap refill <3sec, vs stable, afebrile, iv site to rac is clear and patent, btx4, abd flat soft nontender, voids via urinal clear yellow urine, skin c/w/d, rashid rodriguez, call light in reach.
--- NOTE | 2021-04-25 15:50 | NUR ---
pt has been discharged to home, he is aware and son is coming to pick him up.
[2021-04-25] MEDS ORDERED: METF500C PO (16:17)
[2021-04-25] MEDS ORDERED: LISI20 PO (16:18)
[2021-04-25] MEDS ORDERED: Vitamin D1000 UNI1 PO (16:19)
[2021-04-25] MEDS ORDERED: ZINC220 PO (16:19)
[2021-04-25] MEDS ORDERED: CEFP200 PO (16:19)
[2021-04-25] MEDS ORDERED: AZIT500 PO (16:20)
--- NOTE | 2021-04-25 16:45 | NUR ---
pt has been discharged to home, iv removed intact, pt has all his belongings, went over instructions, he verbalized understanding, new medications faxed to [facility]. left via wheelchair with nurse in attendence.
== END 2021-04-25 16:45 | disposition home health service (06) | DRG 177 ==
LOC: ER 11:22 → ERHOLD 13:25 → MEDS 16:20
PROVIDERS: Physician Assistant; ADMIT Internal Medicine
PROC: 8E0ZXY6 Isolation (ICD-10-PCS; principal; 2021-04-23)
PROC: XW033G6 Introduction of REGN-COV2 Monoclonal Antibody into Peripheral Vein, Percutaneous Approach, New Technology Group 6 (ICD-10-PCS; 2021-04-23)
PROC: 3E02340 Introduction of Influenza Vaccine into Muscle, Percutaneous Approach (ICD-10-PCS; 2021-04-23)
DX: U07.1 COVID-19 (principal); J96.01 Acute respiratory failure with hypoxia; J12.82 Pneumonia due to coronavirus disease 2019; J44.1 Chronic obstructive pulmonary disease with (acute) exacerbation; I16.1 Hypertensive emergency; N18.4 Chronic kidney disease, stage 4 (severe); I13.0 Hypertensive heart and chronic kidney disease with heart failure and stage 1 through stage 4 chronic kidney disease, or unspecified chronic kidney disease; J44.0 Chronic obstructive pulmonary disease with (acute) lower respiratory infection; Z23 Encounter for immunization; E11.22 Type 2 diabetes mellitus with diabetic chronic kidney disease; Z66 Do not resuscitate; N40.0 Benign prostatic hyperplasia without lower urinary tract symptoms; I25.10 Atherosclerotic heart disease of native coronary artery without angina pectoris; I50.9 Heart failure, unspecified; E78.5 Hyperlipidemia, unspecified; Z71.6 Tobacco abuse counseling; I25.2 Old myocardial infarction; K21.9 Gastro-esophageal reflux disease without esophagitis; Z98.890 Other specified postprocedural states; Z95.5 Presence of coronary angioplasty implant and graft; F17.290 Nicotine dependence, other tobacco product, uncomplicated; Z79.899 Other long term (current) drug therapy; Z79.02 Long term (current) use of antithrombotics/antiplatelets; Z79.82 Long term (current) use of aspirin; Z79.84 Long term (current) use of oral hypoglycemic drugs
CPT/HCPCS: 36415; 71045; 80053; 82728; 82947; 83615; 83880; 84484; 85025; 90686; 93005; 93010; 94760; 96374; 96375; 99285-25; A9270; J0360; J0456; J0696; J1650; J1815; J1940; J2405; J2920; J7050; Q0243; U0004

== ENCOUNTER 2023-08-03 06:02 | Day surgery (SDC) | payer MEDICARE ==
[~2023-08-03] VITALS: Ht 167.6 cm; Wt 61.0 kg
[~2023-08-03 06:02] MED LIST changes: +AZIT500 PO; +CEFP200 PO; +METF500C PO; +OMEP20ER PO; -Prilosec Otc20 MG PO; +Vitamin D1000 UNI1 PO; +ZINC220 PO
[2023-08-03] MEDS ORDERED: Verapamil HCL 2.5 MG/ML 2ML Injection ONE (06:37)
[2023-08-03] MEDS ORDERED: NS 250 ML IV ONE (06:38)
[2023-08-03] MEDS ORDERED: Heparin Sodium 1000 Units/ML 10ML MDV ONE (06:38)
[2023-08-03] MEDS ORDERED: Nitroglycerin 2 MG/20 ML BTL ONE (06:38)
[2023-08-03] MEDS ORDERED: NS 1,000 ML IV ONE ×2 (06:38→07:40)
[2023-08-03] MEDS ORDERED: SERT25 PO (06:44)
[2023-08-03 06:47] VITALS: BP 191/72
[2023-08-03 07:17] LABS: BASOPHILS ABSOLUTE AUTO 0.03 K/mm3 (0.00-0.23); BASOPHILS PERCENT AUTO 1 % (0-2); EOSINOPHILS ABSOLUTE AUTO 0.53 K/mm3 (0.00-0.68); EOSINOPHILS PERCENT AUTO 8 % (0-6); Hematocrit 31.5 % (37.0-53.0); Hemoglobin 10.4 g/dL (13.5-17.5); IMMATURE GRAN ABSOLUTE AUTO 0.01 K/mm3 (0.00-0.10); IMMATURE GRAN PERCENT AUTO 0 % (0-1); LYMPHOCYTES ABSOLUTE AUTO 1.02 K/mm3 (0.84-5.20); LYMPHOCYTES PERCENT AUTO 16 % (21-46); MONOCYTES ABSOLUTE AUTO 0.52 K/mm3 (0.16-1.47); MONOCYTES PERCENT AUTO 8 % (4-13); Mean Corpuscular HGB 31.8 pg (26.0-34.0); Mean Corpuscular Volume 96 fL (80-100); Mean Platelet Volume 10.1 fL (9.1-12.4); NEUTROPHILS ABSOLUTE AUTO 4.29 K/mm3 (1.96-9.15); NEUTROPHILS PERCENT AUTO 67 % (41-73); Platelet Count 217 K/mm3 (150-400); RDW Coefficient Variation 15.8 % (11.7-14.2); RDW Standard Deviation 56.4 fL (35.1-46.3); Red Blood Cell Count 3.27 M/mm3 (4.30-5.90)
[2023-08-03 07:35] LABS: Bun/Creatinine Ratio 14.5 (12.0-20.0); Creatinine, Blood 3.37 mg/dL (0.60-1.20); Potassium, Blood 4.5 mmol/L (3.5-5.5)
[2023-08-03 07:38] LABS: International Normalized Ratio 1.06; Prothrombin Time Results 11.1 Sec (9.7-11.5)
[2023-08-03] MEDS ORDERED: FentaNYL Citrate 50 MCG/ML 2 ML Injection ONE ×2 (07:40→08:49)
[2023-08-03] MEDS ORDERED: Midazolam HCl 1MG / ML 2ML Vial ONE ×2 (07:40→08:49)
[2023-08-03] MEDS ORDERED: HydrALAZINE HCl 20 MG / ML 1ML Vial ONE (08:02)
[2023-08-03] MEDS ORDERED: NiCARdipine HCL 1,000 MCG/5 ML SYR ONE (08:43)
[2023-08-03 09:57] VITALS: BP 155/70
[2023-08-03 10:00] VITALS: BP 173/71
[2023-08-03 10:15] VITALS: BP 162/67
[2023-08-03 11:11] VITALS: BP 171/70
[2023-08-03 11:15] VITALS: BP 202/71
--- NOTE | 2023-08-03 11:24 | NUR ---
10CC AIR REMOVED FROM R WRIST TR BAND. NEG BLEEDING OR SWELLING. PT AMB TO BATHROOM /C SBA. TOLERATED WELL.
--- NOTE | 2023-08-03 12:30 | NUR ---
R WRIST TR BAND REMOVED AND CLOTH DOT DRSG PLACED. R WRIST TR BAND REAPPLIED. PT AND SON VERBALIZED UNDERSTANDING OF WRITTEN AND VERBAL D/C INST. IV REMOVED. PT TAKEN OUT OF THE HRT CENTER VIA AMB.
== END 2023-08-03 12:30 | disposition home or self-care (01) ==
LOC: MHTC 06:02
PROVIDERS: Student in an Organized Health Care Education/Training Program
DX: I35.0 Nonrheumatic aortic (valve) stenosis (principal); I25.10 Atherosclerotic heart disease of native coronary artery without angina pectoris; I77.810 Thoracic aortic ectasia; J43.8 Other emphysema; I42.2 Other hypertrophic cardiomyopathy; I25.2 Old myocardial infarction; I13.0 Hypertensive heart and chronic kidney disease with heart failure and stage 1 through stage 4 chronic kidney disease, or unspecified chronic kidney disease; N18.9 Chronic kidney disease, unspecified; E11.22 Type 2 diabetes mellitus with diabetic chronic kidney disease; I50.9 Heart failure, unspecified; E78.5 Hyperlipidemia, unspecified
CPT/HCPCS: 76937; 80048; 85025; 85610; 93454; 99152; 99153; A9270; C1769; C1894; J0360; J1644; J2250; J3010; J7030; J7050; Q9967